=== PATIENT | male | born 1970 | race Caucasian/White ===

== ENCOUNTER 2021-04-16 00:09 | Emergency (ER) | payer BC ==
[~2021-04-16] VITALS: Ht 177.8 cm; Wt 97.5 kg
[2021-04-16 00:25] VITALS: BP_SYST 133
[2021-04-16] MEDS ORDERED: KETOROLAC TROMETHAMINE 60 MG/2 ML VIAL IM ONE (03:15)
[2021-04-16] MEDS ORDERED: PRED20TA PO (05:12)
[2021-04-16 05:41] VITALS: BP_SYST 163
== END 2021-04-16 05:41 | disposition home or self-care (01) ==
LOC: SED 00:09
DX: M25.462 Effusion, left knee (principal); I10 Essential (primary) hypertension; X50.1XXA Overexertion from prolonged static or awkward postures, initial encounter; Y93.89 Activity, other specified; Y92.89 Other specified places as the place of occurrence of the external cause; Y99.8 Other external cause status
CPT/HCPCS: 29505; 73560; 96372; 99283; J1885